=== PATIENT | female | born 1945 | race Caucasian/White ===

== ENCOUNTER → 2017-08-03 | Outpatient (CLI) | payer MEDICARE ==
[~2017-08-03] MED LIST: ASPI-496 PO; ATOR40TA78 PO; CHOL200024 PO; DIPH25CA61 PO; DULO60CA7 PO; FENO145T13 PO; GLYC1TAB PO; HYDR-3307 PO; LEVO150T5 PO; LEVO75TA5 PO; MULT-717 PO; TRIA1CAP PO; [UNRECOGNIZED DRUG - OTHER] PO
[2017-08-03 09:38] LABS: BASOPHILS # (AUTO) 0.06 x10^3/uL (0-0.1); BASOPHILS % (AUTO) 1 % (0-1); EOSINOPHILS # (AUTO) 0.14 x10^3/uL (0-0.4); EOSINOPHILS % (AUTO) 2 % (1-7); LYMPHOCYTES # (AUTO) 3.87 x10^3/uL (1-3.4); LYMPHOCYTES % (AUTO) 40 % (22-44); MD NO; MEAN CORPUSCULAR HEMOGLOBIN 29.4 pg (27.0-34.8); MEAN CORPUSCULAR HGB CONC 33.4 g/dL (32.4-35.8); MEAN CORPUSCULAR VOLUME 88.2 fL (80-100); MEAN PLATELET VOLUME 7.7 fL (7.4-10.4); MONOCYTES # (AUTO) 0.65 x10^3/uL (0.2-0.8); MONOCYTES % (AUTO) 7 % (2-9); NEUTROPHILS # (AUTO) 4.87 x10^3/uL (1.8-6.8); NEUTROPHILS % (AUTO) 51 % (42-75); PLATELET COUNT 394 x10^3/uL (130-400); RED BLOOD COUNT 5.14 x10^6/uL (3.82-5.3); RED CELL DISTRIBUTION WIDTH 15.5 % (9.6-15.2)
[2017-08-03 09:51] LABS: ANION GAP 7 mmol/L (5-15); CALCIUM 9.1 mg/dL (8.5-10.1); CHLORIDE 102 mmol/L (98-107)
[2017-08-03 09:54] LABS: ALANINE AMINOTRANSFERASE 22 U/L (12-78); ALKALINE PHOSPHATASE 58 U/L (45-117); BILIRUBIN,TOTAL 0.3 mg/dL (0.2-1.0); CREATININE 0.98 mg/dL (0.55-1.02); TOTAL PROTEIN 7.8 g/dL (6.4-8.2)
[2017-08-03 09:55] LABS: CULTURE INDICATED? YES; MICROSCOPIC INDICATED
== END ==
LOC: STAR 08:02
PROVIDERS: ATTEND Orthopaedic Surgery
DX: Z01.818 Encounter for other preprocedural examination (principal); M16.11 Unilateral primary osteoarthritis, right hip; R94.31 Abnormal electrocardiogram [ECG] [EKG]; Z79.899 Other long term (current) drug therapy
CPT/HCPCS: 36415; 80053; 81001; 85025; 86703; 87081; 87086; 87899; 93005; G0435

== ENCOUNTER 2017-08-07 05:55 | Inpatient (IN) | payer MEDICARE ==
[2017-08-03 08:35] VITALS: BP 123/76
[~2017-08-07] VITALS: Ht 167.6 cm; Wt 81.7 kg
[2017-08-07] MEDS ORDERED: VANCOMYCIN PMX 1GM/200ML 200 ML IV STA (06:13)
[2017-08-07] MEDS ORDERED: LACTATED RINGERS 1,000 ML IV SCH (06:38)
[2017-08-07] MEDS ORDERED: KETOROLAC 60 MG/2 ML ONE (06:39)
[2017-08-07] MEDS ORDERED: TRANEXAMIC ACID 100 MG/ML, 10ML ONE (06:39)
[2017-08-07] MEDS ORDERED: ROPIvacaine/PF 0.2%, 20 ML ONE (06:39)
[2017-08-07] MEDS ORDERED: morphine SULFATE/PF 1 MG/ML, 10ML ONE (06:39)
[2017-08-07] MEDS ORDERED: BACITRACIN 50,000 UNIT ONE (06:40)
[2017-08-07] MEDS ORDERED: SODIUM CHLORIDE 0.9% 100 ML ONE (06:40)
[2017-08-07] MEDS ORDERED: EPINEPHRINE 1 MG/ML, 1ML ONE (06:40)
[2017-08-07] MEDS ORDERED: MIDAZOLAM 1 MG/ML, 2ML ONE (06:46)
[2017-08-07] MEDS ORDERED: FENTANYL PF 250 MCG/5ML ONE (06:46)
[2017-08-07] MEDS ORDERED: PROPOFOL 10 MG/ML, 20ML ONE (06:47)
[2017-08-07] MEDS ORDERED: ONDANSETRON 2MG/ML, 2ML ONE (06:48)
[2017-08-07] MEDS ORDERED: DEXAMETHASONE 4 MG/ML, 1ML ONE ×2 (06:48)
[2017-08-07] MEDS ORDERED: ROCURONIUM 10 MG/ML,10ML ONE (06:48)
[2017-08-07] MEDS ORDERED: SODIUM CHLORIDE 0.9% PF 10ML ONE (06:49)
[2017-08-07] MEDS ORDERED: CEFAZOLIN 1,000 MG ONE ×2 (06:49)
[2017-08-07] MEDS ORDERED: NEOSTIGMINE 1 MG/ML, 10ML ONE (06:52)
[2017-08-07] MEDS ORDERED: GLYCOPYRROLATE 0.4 MG/2 ML, 2ML ONE ×3 (06:53→08:40)
[2017-08-07] MEDS ORDERED: LIDOCAINE 1%, 2ML SQ PRN (07:00)
[2017-08-07] MEDS ORDERED: ACETAMINOPHEN 325 MG TABLET PO PRN ×2 (07:30→09:30)
[2017-08-07] MEDS ORDERED: hydrALAzine 20 MG/ML, 1ML IV PRN (07:30)
[2017-08-07] MEDS ORDERED: PROMETHAZINE 25 MG/ML, 1ML IV PRN (07:30)
[2017-08-07] MEDS ORDERED: LABETALOL 5MG/ML, 20ML IV PRN (07:30)
[2017-08-07] MEDS ORDERED: MEPERIDINE/PF 25MG/0.5ML IVPush PRN (07:30)
[2017-08-07] MEDS ORDERED: ONDANSETRON 2MG/ML, 2ML IVPush PRN ×2 (07:30→09:30)
[2017-08-07] MEDS ORDERED: FENTANYL PF 100 MCG/2ML ONE ×3 (08:07→09:38)
[2017-08-07] MEDS ORDERED: LABETALOL 5MG/ML, 20ML ONE (08:09)
[2017-08-07] MEDS ORDERED: PHENYLEPHRINE 10 MG/ML ONE (08:22)
[2017-08-07] MEDS ORDERED: TRANEXAMIC ACID 1,000 MG in SODIUM CHLORIDE 0.9% 100 ML IV ONE (09:30)
[2017-08-07] MEDS ORDERED: LORazepam 2 MG/ML, 1ML IVPush PRN (09:30)
[2017-08-07] MEDS ORDERED: ZOLPIDEM 5MG TABLET PO PRN (09:30)
[2017-08-07] MEDS ORDERED: DIPHENHYDRAMINE 50 MG CAPSULE PO PRN (09:30)
[2017-08-07] MEDS ORDERED: ACETAMINOPHEN 650 MG/20.3 ML UDC ONE (09:38)
[2017-08-07] MEDS ORDERED: OXYcodone 5 MG/5 ML ORAL.SOL UDC ONE (09:39)
[2017-08-07] MEDS: FENTANYL PF 100 MCG/2ML IV PRN ×2 (09:40→09:51)
[2017-08-07] MEDS: OXYcodone 5 MG/5 ML ORAL.SOL UDC PO PRN ×2 (09:49→10:19)
[2017-08-07] MEDS ORDERED: HYDROmorphone 2 MG/ML, 1ML ONE (09:55)
[2017-08-07] MEDS: HYDROmorphone 1 MG/ML, 1ML IV PRN ×3 (09:57→10:43)
[2017-08-07 11:15] VITALS: BP 137/59
[2017-08-07] MEDS ORDERED: VANCOMYCIN PMX 1GM/200ML 200 ML IVPB ONE (11:30)
[2017-08-07] MEDS: morphine SULFATE 10 MG/ML, 1ML IVPush PRN ×2 (12:24→20:23)
[2017-08-07] MEDS ORDERED: HYDROcodone/APAP 10/325 MG TABLET PO PRN (12:30)
[2017-08-07] MEDS: CEFAZOLIN PMX 1GM/50ML 50 ML IVPB SCH ×2 (15:30→23:10)
[2017-08-07] MEDS: D5%-0.45% NACL 1,000 ML IV SCH ×3 (15:36→23:21)
[2017-08-07 19:00] VITALS: BP 130/65
[2017-08-07] MEDS: CHOLECALCIFEROL 1,000 UNIT TABLET PO SCH (20:22)
[2017-08-07] MEDS: OXYcodone/APAP 7.5/325MG TABLET PO PRN (20:22)
[2017-08-07] MEDS ORDERED: ATORVASTATIN 40 MG TABLET PO SCH (21:00)
[2017-08-08] MEDS: OXYcodone/APAP 7.5/325MG TABLET PO PRN ×4 (00:17→14:43)
[2017-08-08] MEDS: morphine SULFATE 10 MG/ML, 1ML IVPush PRN ×2 (00:17→04:35)
[2017-08-08 00:30] VITALS: BP 107/63
[2017-08-08 03:02] VITALS: BP 118/67
[2017-08-08] MEDS: D5%-0.45% NACL 1,000 ML IV SCH ×3 (03:24→10:08)
[2017-08-08] MEDS ORDERED: LEVOTHYROXINE 150 MCG TABLET PO SCH (06:00)
[2017-08-08] MEDS: CEFAZOLIN PMX 1GM/50ML 50 ML IVPB SCH (06:40)
[2017-08-08] MEDS ORDERED: VANCOMYCIN PMX 1GM/200ML 200 ML IV ONE (07:45)
[2017-08-08 07:48] VITALS: BP 125/67
[2017-08-08] MEDS: CHOLECALCIFEROL 1,000 UNIT TABLET PO SCH (08:20)
[2017-08-08] MEDS ORDERED: FENOFIBRATE 145 MG TABLET PO SCH (09:00)
[2017-08-08] MEDS ORDERED: DULOXETINE 30 MG CAPSULE.DR PO SCH (09:00)
[2017-08-08] MEDS ORDERED: MULTIVITAMINS/MINERALS TABLET PO SCH (09:00)
[2017-08-08] MEDS ORDERED: TRIAMTERENE-HCTZ 37.5/25 MG TABLET PO SCH (09:00)
[2017-08-08 12:45] VITALS: BP 128/63
[2017-08-08] MEDS ORDERED: ASPIRIN 325 MG TABLET EC PO SCH (17:00)
[2017-08-08] MEDS ORDERED: DOCUSATE 100 MG CAPSULE PO SCH (21:00)
[2017-08-09] MEDS ORDERED: LEVOTHYROXINE 75 MCG TABLET PO SCH (06:00)
== END 2017-08-08 15:25 | disposition home or self-care (01) | DRG 470 ==
LOC: ORIP 05:55 → 4NOR 11:08
PROVIDERS: ADMIT Orthopaedic Surgery; ATTEND Orthopaedic Surgery
PROC: 0SR90JZ Replacement of Right Hip Joint with Synthetic Substitute, Open Approach (ICD-10-PCS; principal; 2017-08-07 07:30)
DX: M16.11 Unilateral primary osteoarthritis, right hip (principal)
CPT/HCPCS: 36415; 85018; 86850; 86900; C1713; J0171; J0690; J1100; J1170; J1885; J2250; J2274; J2405; J2704; J2710; J2795; J3010; J3370; C1776; J2060; J2270; J2370; J7120